=== PATIENT | female | born 2000 | race Caucasian/White ===

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

== ENCOUNTER → 2018-06-17 | Outpatient (CLI) | payer OTHER ==
--- NOTE | 2018-06-21 13:43 | MRI ---
MRI left shoulder without contrast INDICATION: Shoulder pain NOS no specific injury TECHNIQUE: Noncontrast MR imaging left shoulder FINDINGS: Subscapularis is intact. Long head bicep is intact. AC joint is intact. No displaced labral tear. No advanced glenohumeral arthrosis. Mild tendinopathy supraspinatus and infraspinatus without rupture or retraction. No pronounced bursitis. Grade 1 marbling throughout the rotator cuff muscle bellies without advanced atrophy. IMPRESSION: No acute internal derangement left shoulder No structurally significant rotator cuff tear Mild rotator cuff tendinopathy Electronically signed by: Jose Bazzi MD 06/21/2018 1:41 PM RN CARDIOLOGY
== END ==
LOC: MRI 13:29
PROVIDERS: ATTEND Family Medicine
DX: M25.512 Pain in left shoulder (principal)